=== PATIENT | male | born 1985 | race Caucasian/White ===

== ENCOUNTER → 2016-10-05 | Outpatient (CLI) | payer OTHER ==
--- NOTE | 2016-10-18 09:52 | SLEEPCENT ---
DATE OF PROCEDURE: 10/05/2016 REFERRING PHYSICIAN: Mr. Baljinder Mckeon PA-C. INTERPRETATION: Nocturnal polysomnography was performed for the evaluation of sleep apnea syndrome symptoms consisting of excessive daytime sleepiness, snoring, and nonrestorative sleep. A total of 8 hours and 30 minutes of data was reviewed with 450.5 minutes of sleep identified. Sleep latency was 26.5 minutes. Rapid eye movement (REM) latency was 146 minutes. All stages of sleep were observed. Sleep efficiency was 90%. Electrocardiogram (EKG) showed sinus bradycardia with an average heart rate of 48 beats per minute. No epileptiform discharge observed. There four respiratory events identified of 10 seconds in duration or longer for an apneic/hypopneic index (AHI) of 0.5. RERA index was 0.7 giving a total respiratory disturbance index (RDI) of 1.2. The events were predominantly obstructive apneas/hypopneas. Mean oxygen saturation for the study was 97% with a minimum recorded value of 93%. Arousal index was 4.4 with the majority of arousals related to limb movements. Periodic limb movement index was 0.5. IMPRESSION: Mild snoring, no evidence of significant sleep disordered breathing. RECOMMENDATION: Recommend consideration for other causes for his symptoms including but not limited to sleep efficiency, narcolepsy, medications, or other. ANGELA
== END ==
LOC: M SLEEP 19:49
PROVIDERS: ATTEND Internal Medicine Pulmonary Disease
DX: G47.30 Sleep apnea, unspecified (principal)